=== PATIENT | male | born 1945 | race Hispanic/Latino ===

== ENCOUNTER 2018-08-19 11:10 | Outpatient (CLI) | payer MEDICARE ==
--- NOTE | 2018-08-19 12:20 | RAD ---
XR Knee Lt 2 View HISTORY: Bilateral primary osteoarthritis of knee, knee pain COMPARISON: None FINDINGS: There are degenerative changes manifested by osteophyte formation and joint space narrowing , most prominent in the medial tibiofemoral and patellofemoral compartments. No fracture, dislocation or bony destruction is seen. IMPRESSION: Left knee osteoarthritis
--- NOTE | 2018-08-19 12:21 | RAD ---
RIGHT KNEE TWO VIEWS: HISTORY: Knee pain. FINDINGS: There are severe arthritic changes of the knee. There is marked medial compartment narrowing present . There are prominent patellofemoral degenerative spurs. The lateral compartment is relatively spar ed. IMPRESSION: Severe medial compartment joint space narrowing. POS: [facility]
== END 2018-08-19 11:11 | disposition home or self-care (01) ==
LOC: BICRAD 11:10
PROVIDERS: ATTEND Internal Medicine Rheumatology
DX: M17.0 Bilateral primary osteoarthritis of knee (principal)